=== PATIENT | male | born 1965 | race Hispanic/Latino ===

== ENCOUNTER 2024-07-01 11:59 | Emergency (ER) | payer BC, SELFPAY ==
[2024-07-01 12:01] VITALS: BP 115/86
--- NOTE | 2024-07-01 14:21 | ED.GENMED ---
History of Present Illness
<Destiny Keys MD, Resident - Last Filed: 07/02/24 07:06>
General
Chief Complaint: Musculo-Skeletal Complaint
Time Seen by Provider: 07/01/24 13:48
Nursing documentation reviewed up to this point in time: agreed with except
History of Present Illness
History of Present Illness:
59 year old male presecreted to ER today complaining from right side chest pain. He reported that he fell down on the bed frame last Monday night in [place]. He reported he also had some trauma on his right elbow but he does not have any
complaining from his right elbow. Reports he took metamizole in [place] for pain and it eased his pain.
Regarding his examination He has a bruising area around his 10-11 th ribs on the right side with some edematous sift tissue on the lateral and back area ~4-5 cm. He has some bruising on his right elbow. He has fill ROM at his right elbow and wrist
without pain.
PMH: None
PSH:None
If applicable-neuro sx onset
Onset of symptoms known: Yes
Date of onset of symptoms: 07/01/24
Past History
<Destiny Keys MD, Resident - Last Filed: 07/02/24 07:06>
Past History
ED Past Medical History: None
ED Past Surgical History: None
Social History
Tobacco: Non-smoker
Alcohol: Occasional
Drug: None
Personal:
Living: with family
Phy Exam
<Destiny Keys MD, Resident - Last Filed: 07/02/24 07:06>
Physical Exam
Physical Exam:
Regarding his examination He has a bruising area around his 10-11 th ribs on the right side with some edematous sift tissue on the lateral and back area ~4-5 cm. He has some bruising on his right elbow. He has fill ROM at his right elbow and wrist
without pain.
General Physical Exam
General Presentation: no apparent distress
General Skin: warm
General Mental: alert
Cardiovascular Exam
Cardiovascular Exam: no edema, no JVD and no murmur
Pulmonary Exam
Pulmonary Exam: lungs clear and other (X ray shows fractured rib on the right side. No findings for effusion or pneumothorax )
Neurological Exam
Neurological Exam: alert, oriented x3 and no motor deficits
Musculoskeletal Exam
Musculoskeletal Exam: other (pain and bruising on the right side chest area)
Course
<Destiny Keys MD, Resident - Last Filed: 07/02/24 07:06>
Orders/Labs/Results
Orders:
Orders
07/01/24 12:03
CR Ribs-right 3 Vw W/pa Chest* Urgent
Comment:
Reason For Exam: injury
07/01/24 14:28
Ketorolac [Toradol] 30 mg IM NOW STA
Lidocaine [Lidocaine 4% Patch] 1 patch TOPICAL ONCE ONE
Apply Lidocaine patch(s) to:: R lateral Chest
Vital Signs
Initial and Last Documented VS:
Initial Vital Signs
Temp Pulse Resp BP Pulse Ox
98.2 F 69 20 115/86 97
07/01/24 12:01 07/01/24 12:01 07/01/24 12:01 07/01/24 12:01 07/01/24 12:01
Last Documented Vital Signs
Temp Pulse Resp BP Pulse Ox
98.2 F 84 20 113/83 98
07/01/24 12:01 07/01/24 15:20 07/01/24 12:01 07/01/24 15:20 07/01/24 15:20
<Ata Hui, DO - Last Filed: 07/01/24 14:33>
Orders/Labs/Results
Orders:
Orders
07/01/24 12:03
CR Ribs-right 3 Vw W/pa Chest* Urgent
Comment:
Reason For Exam: injury
07/01/24 14:28
Ketorolac [Toradol] 30 mg IM NOW STA
Lidocaine [Lidocaine 4% Patch] 1 patch TOPICAL ONCE ONE
Apply Lidocaine patch(s) to:: R lateral Chest
Vital Signs
Initial and Last Documented VS:
Initial Vital Signs
Temp Pulse Resp BP Pulse Ox
98.2 F 69 20 115/86 97
07/01/24 12:01 07/01/24 12:01 07/01/24 12:01 07/01/24 12:01 07/01/24 12:01
Last Documented Vital Signs
Temp Pulse Resp BP Pulse Ox
98.2 F 84 20 113/83 98
07/01/24 12:01 07/01/24 15:20 07/01/24 12:01 07/01/24 15:20 07/01/24 15:20
<Destiny Keys MD, Resident - Last Filed: 07/02/24 07:06>
MDM/Problems Addressed
MDM/Problems Addressed:
You were seen in the emergency department for chest pain and you were diagnosed with fractured rib on your right side. Please follow up with your primary care physician. Return to emergency department for any increased pain , worsening pain,
difficulty with breathing, shortness of breath or any additional symptoms that are concerning to you.
Thank you for choosing [facility]
<Destiny Keys MD, Resident - Last Filed: 07/02/24 07:06>
*Critical Care Note
Total Time (30-74mins, 75-104mins- exclusive of procedures): Not Applicable
ED Attending Note
<Destiny Keys MD, Resident - Last Filed: 07/02/24 07:06>
-
Portions of this chart may have been created with voice recognition software.� Occasional wrong word or��sound alike� substitutions may have occurred due to the inherent limitations of voice recognition software.
<Ata Hui, DO - Last Filed: 07/01/24 14:33>
ED Attending Note
Patient seen and examined by attending physician: Yes
I performed a history and physical exam of patient and discussed management with resident, I reviewed resident's note and agree with documented findings and plan of care.: Yes
ED Attending Note:
I have seen and evaluated the patient with a [id number] encounter. I have spoken to the resident and involved in the medical history, the physical exam, medical decision making.
Evaluation and management service: agree unless noted differently below.
Results interpretation: agree unless noted differently below.
Focused HPI: 59-year-old male presenting with right chest pain after a trip and fall. He has been taking pain medicine [id number].
Complaining of worsening pain with deep inspiration
Physical exam: Bruising to right lateral chest. No acute distress. Lungs clear
Medical Decision Making: X-ray consistent with right lateral ninth rib fracture. No pneumothorax. Will start pain medicine discussed return precautions
Discharge Plan
Departure
Patient Disposition: Home (Routine Discharge)
Date of Disposition: 07/01/24
Time of Disposition: 14:31
Patient with high blood pressure during this ER visit?: No
Condition: Good
Discharge Problem:
Right rib fracture
Instructions: Rib Fracture
Prescriptions:
New
diclofenac potassium 50 mg tablet
50 mg PO BID Qty: 20 0RF
oxycodone 5 mg tablet
5 mg PO Q8H PRN (Reason: Pain) Qty: 14 0RF
lidocaine 5 % adhesive patch,medicated
1 patch topical DAILY Qty: 15 0RF
No Action
famotidine [Pepcid AC] 20 MG tablet
20 mg PO BID Qty: 60 0RF
Referrals:
NONE,* [Family Provider] -
Activity Restrictions/Additional Instructions:
Please return for any worsening symptoms.
You may return at any time if you have further concerns.
You were given a prescription for narcotics. If you require this pain medicine, please take a daily [id number] stool softener to avoid constipation.
Thank you for choosing [facility].
Interventions
Interventions:
*Risk Screen - Suicide Last Done: 07/01/24 12:01
*General Assessment Last Done: 07/01/24 15:20
*Neglect/Abuse Screening Last Done: 07/01/24 12:01
*Nursing Disposition Last Done: 07/01/24 15:20
ED-Musculoskeletal Assessment Last Done: 07/01/24 13:57
Discharge Date and Time
Discharge Date/Time: 07/01/24 15:50
Print Language: COMORAN
[2024-07-01] MEDS: LIDOCAINE 4% PATCH 1 PATCH TOPICAL (15:01)
[2024-07-01] MEDS: TORADOL 30 MG IM (15:01)
[2024-07-01 15:20] VITALS: BP 113/83
== END 2024-07-01 15:50 | disposition home or self-care (01) ==
LOC: EMR 11:59
PROVIDERS: EMERGENCY PHYSICIAN Student in an Organized Health Care Education/Training Program
DX: S22.31XA Fracture of one rib, right side, initial encounter for closed fracture (principal); S50.01XA Contusion of right elbow, initial encounter; S20.211A Contusion of right front wall of thorax, initial encounter; W01.198A Fall on same level from slipping, tripping and stumbling with subsequent striking against other object, initial encounter
CPT/HCPCS: 99283; 71101